=== PATIENT | male | born 1935 | race Two or more races ===

== ENCOUNTER 2018-12-27 16:26 | Inpatient (IN) | payer MEDICARE ==
[2018-12-27 22:12] VITALS: BP 137/67
[2018-12-27] MEDS ORDERED: Acetaminophen 500 MG TAB PO PRN (23:26)
[2018-12-28] MEDS: NIFEdipine 30 mg ER Tab PO SCH (14:30)
--- NOTE | 2018-12-28 15:52 | History & Physical ---
ADMIT DATE: 12/28/2018 CHIEF COMPLAINT: Transfer from [facility] for continuation of psychiatric management. HISTORY OF PRESENT ILLNESS: This is an 83-year-old male who was transferred from [facility] who is medically cleared, who is also a resident of [facility] care unit, who has a 1-day history of increase of agitation and aggressive behavior and inappropriate sexual behavior towards female staff at the residential. PAST MEDICAL HISTORY: CVA with left hemiplegia, dysphagia, AFib, NM, DM, neuropathy, seizure, CKD, BPH, chronic constipation, glaucoma. PAST SURGICAL HISTORY: Unknown. ALLERGIES: AMBIEN. SOCIAL HISTORY: The patient is a residential resident, requiring 24-hour nursing care. FAMILY HISTORY: Noncontributory. MEDICATIONS: See medication list. REVIEW OF SYSTEMS: GENERAL: Denies any fever or chills. CARDIOVASCULAR: Denies chest pain. RESPIRATORY: Denies shortness of breath. GASTROINTESTINAL: Denies nausea, vomiting, abdominal pain. GENITOURINARY: Denies increased frequency or dysuria. NEUROLOGIC: Denies headache, seizures or syncope. All systems are reviewed and are negative. PHYSICAL EXAMINATION: EXTREMITIES: The patient is an elderly male, well developed, well nourished, no apparent distress. VITAL SIGNS: Temperature 97.9, heart rate 71, blood pressure 175/82, respirations 20, O2 97%. HEENT: Head; normocephalic, atraumatic. NECK: Supple. No mass. LUNGS: Clear bilaterally. ABDOMEN: Soft, nontender. EXTREMITIES: No edema noted. ASSESSMENT: Aggressive behavior, agitation, dysphagia, history of atrial fibrillation, history of myocardial infarction, type 2 diabetes, neuropathy, history of seizures, chronic kidney disease, benign prostatic hypertrophy, chronic constipation, glaucoma. PLAN: Seizure precautions will be initiated. We will monitor the patient's glucose level closely. Aspiration precautions, fall precautions. Continue patient's home medications. We will continue to monitor this patient. JOB# [id number]
--- NOTE | 2018-12-28 17:27 | Psychiatric Evaluation ---
DATE OF SERVICE: 12/28/2018 JUSTIFICATION FOR HOSPITALIZATION: "I'm here visiting." HISTORY OF PRESENT ILLNESS: This is an 83-year-old male, very confused, disoriented, was apparently aggressive at the shelter facility, touching females inappropriately, hitting other people, aggressive, agitated, very impulsive, unpredictable. On [id number], the patient is AO to name only, not place, not month, he believes this is 1999 as the year and the month is 1959. Noted to be yelling, trying to hit others. PAST PSYCHIATRIC HISTORY: Likely dementia as noted, also depression. PAST MEDICAL HISTORY: Please see full H and P. SOCIAL HISTORY: Coming from a shelter. Unclear level of family support. We will attempt to increase collateral. MENTAL STATUS EXAMINATION: Stated age. Fair eye contact, appearing somewhat younger than his stated age, confused, disoriented. No SI, no HI, no overt psychotic symptoms, very poor impulse control. PROVISIONAL DIAGNOSES: Dementia, dementia with behaviors; mood, unspecified; anxiety, unspecified. MEDICAL: Please see full H and P. ESTIMATED LENGTH OF STAY: 7-10 days. ASSESSMENT: The patient requiring hospitalization, agitated, aggressive, hypersexual toward females. PLAN: We will adjust medications. TREATMENT PLAN: Includes group as well as milieu therapy. CONDITIONS FOR DISCHARGE: Improved mood, improved affect, better control of his agitation. JOB# [id number]
[2018-12-29] MEDS: NIFEdipine 30 mg ER Tab PO SCH (09:00)
--- NOTE | 2018-12-29 15:26 | Internal Medicine Prog Note ---
Internal Medicine Subjective - Subjective Service Date: 12/29/18 Patient seen and examined:: with staff Patient is:: asleep Per staff patient has:: tolerating meds Internal Medicine Objective - Physical Exam Vitals and I&O: Vital Signs Temp 120 F 12/29/18 06:44 Pulse 76 12/28/18 20:31 Resp 18 12/28/18 20:00 BP 149/70 12/28/18 20:31 Pulse Ox 97 12/28/18 20:00 Intake & Output 12/28/18 12/29/18 12/29/18 18:59 06:59 18:59 Intake Total 1200 Balance 1200 Intake: Oral 1200 Other: # Voids 2 # Bowel Movements 1 0 Active Medications: Current Medications Acetaminophen (Tylenol Extra Strength) 1,000 mg PO Q4H PRN PRN Reason: Pain (Moderate) LEVEL 4-7 Stop: 02/25/19 23:25 Acetaminophen (Tylenol) 500 mg PO Q8H PRN PRN Reason: Pain (Mild) LEVEL 1-3 Stop: 02/25/19 23:23 Aspirin (Ecotrin) 81 mg PO DAILY [facility] Stop: 02/26/19 08:59 Last Admin: 12/28/18 09:00 Dose: 81 mg Brimonidine Tartrate (Alphagan 0.2% Ophth Soln) 1 drop EACH EYE Q12HR [facility] Stop: 02/26/19 08:59 Last Admin: 12/28/18 21:21 Dose: Not Given Docusate Sodium (Colace) 250 mg PO DAILY [facility] Stop: 02/26/19 08:59 Last Admin: 12/28/18 09:02 Dose: 250 mg Donepezil HCl (Aricept) 10 mg PO HS [facility] Stop: 02/26/19 20:59 Last Admin: 12/28/18 20:31 Dose: 10 mg Escitalopram Oxalate (Lexapro) 10 mg PO BID [facility]; Protocol Stop: 02/26/19 08:59 Last Admin: 12/28/18 16:56 Dose: 10 mg Finasteride (Proscar) 5 mg PO DAILY [facility]; Protocol Stop: 02/26/19 08:59 Last Admin: 12/28/18 09:04 Dose: 5 mg Hydralazine HCl (Apresoline) 25 mg PO QID [facility] Stop: 02/26/19 08:59 Last Admin: 12/28/18 20:31 Dose: 25 mg Levetiracetam (Keppra) 500 mg PO BID [facility] Stop: 02/26/19 08:59 Last Admin: 12/28/18 16:57 Dose: 500 mg Lorazepam (Ativan) 0.5 mg PO Q8H [facility]; Protocol Stop: 01/26/19 22:44 Last Admin: 12/29/18 06:37 Dose: 0.5 mg Losartan Potassium (Cozaar) 50 mg PO BID [facility] Stop: 02/26/19 08:59 Last Admin: 12/28/18 16:57 Dose: 50 mg Memantine (Namenda) 10 mg PO BID [facility] Stop: 02/26/19 08:59 Last Admin: 12/28/18 16:57 Dose: 10 mg Nifedipine (Procardia Xl) 90 mg PO DAILY [facility] Stop: 02/26/19 08:59 Last Admin: 12/28/18 14:30 Dose: 90 mg Risperidone (Risperdal) 0.25 mg PO BID [facility]; Protocol Stop: 02/27/19 08:59 Tamsulosin HCl (Flomax) 0.4 mg PO HS [facility] Stop: 02/26/19 20:59 Last Admin: 12/28/18 20:31 Dose: 0.4 mg Timolol Maleate (Timoptic 0.5% [facility]) 1 drop EACH EYE BID [facility] Stop: 02/26/19 08:59 Last Admin: 12/28/18 17:45 Dose: 1 drop Valproate Sodium (Depakene) 250 mg PO BID [facility]; Protocol Stop: 02/26/19 08:59 Last Admin: 12/28/18 16:58 Dose: 250 mg General: other (sleepy) HEENT: NC/AT, PERRLA Neck: Supple Lungs: CTAB Cardiovascular: RRR, Normal S1, Normal S2, without murmur Abdomen: soft, non-tender Internal Medicine Assmt/Plan - Assessment Assessment: ASSESSMENT: Aggressive behavior, agitation, dysphagia, history of atrial fibrillation, history of myocardial infarction, type 2 diabetes, neuropathy, history of seizures, chronic kidney disease, benign prostatic hypertrophy, chronic constipation, glaucoma. - Plan Plan: psych meds may need to be adjusted patient has been asleep the whole day fall precautions continue current plan of care
[2018-12-30] MEDS: NIFEdipine 30 mg ER Tab PO SCH (08:12)
--- NOTE | 2018-12-30 12:50 | Internal Medicine Prog Note ---
Internal Medicine Subjective - Subjective Patient seen and examined:: with staff, chart reviewed Patient is:: asleep, interactive Per staff patient has:: no adverse event, no episodes of fall, tolerating meds Internal Medicine Objective - Physical Exam Vitals and I&O: Vital Signs Temp 97.7 F 12/30/18 06:43 Pulse 69 12/30/18 08:15 Resp 18 12/30/18 06:43 BP 141/77 12/30/18 08:15 Pulse Ox 96 12/30/18 06:43 Intake & Output 12/29/18 12/30/18 12/30/18 18:59 06:59 18:59 Intake Total 550 120 Balance 550 120 Intake: Oral 550 120 Other: # Voids 3 Active Medications: Current Medications Acetaminophen (Tylenol Extra Strength) 1,000 mg PO Q4H PRN PRN Reason: Pain (Moderate) LEVEL 4-7 Stop: 02/25/19 23:25 Acetaminophen (Tylenol Extra Strength) 500 mg PO Q8H PRN PRN Reason: Pain (Mild) LEVEL 1-3 Stop: 02/25/19 23:23 Aspirin (Ecotrin) 81 mg PO DAILY [facility] Stop: 02/26/19 08:59 Last Admin: 12/30/18 08:12 Dose: 81 mg Brimonidine Tartrate (Alphagan 0.2% Oph Soln) 1 drop EACH EYE Q12HR [facility] Stop: 02/26/19 08:59 Last Admin: 12/30/18 08:46 Dose: 1 drop Docusate Sodium (Colace) 250 mg PO DAILY [facility] Stop: 02/26/19 08:59 Last Admin: 12/30/18 08:12 Dose: 250 mg Donepezil HCl (Aricept) 10 mg PO HS [facility] Stop: 02/26/19 20:59 Last Admin: 12/29/18 20:49 Dose: 10 mg Escitalopram Oxalate (Lexapro) 10 mg PO BID [facility]; Protocol Stop: 02/26/19 08:59 Last Admin: 12/30/18 08:13 Dose: 10 mg Finasteride (Proscar) 5 mg PO DAILY [facility]; Protocol Stop: 02/26/19 08:59 Last Admin: 12/30/18 08:12 Dose: 5 mg Hydralazine HCl (Apresoline) 25 mg PO QID [facility] Stop: 02/26/19 08:59 Last Admin: 12/30/18 08:15 Dose: 25 mg Levetiracetam (Keppra) 500 mg PO BID [facility] Stop: 02/26/19 08:59 Last Admin: 12/30/18 08:12 Dose: 500 mg Lorazepam (Ativan) 0.5 mg PO Q8H [facility]; Protocol Stop: 01/26/19 22:44 Last Admin: 12/30/18 06:39 Dose: 0.5 mg Losartan Potassium (Cozaar) 50 mg PO BID [facility] Stop: 02/26/19 08:59 Last Admin: 12/30/18 08:14 Dose: 50 mg Memantine (Namenda) 10 mg PO BID [facility] Stop: 02/26/19 08:59 Last Admin: 12/30/18 08:11 Dose: 10 mg Nifedipine (Procardia Xl) 90 mg PO DAILY [facility] Stop: 02/26/19 08:59 Last Admin: 12/30/18 08:12 Dose: 90 mg Risperidone (Risperdal) 0.25 mg PO BID [facility]; Protocol Stop: 02/27/19 08:59 Tamsulosin HCl (Flomax) 0.4 mg PO HS [facility] Stop: 02/26/19 20:59 Last Admin: 12/29/18 20:49 Dose: 0.4 mg Timolol Maleate (Timoptic 0.5% Oph Soln) 1 drop EACH EYE BID [facility] Stop: 02/26/19 08:59 Last Admin: 12/30/18 08:46 Dose: 1 drop Valproate Sodium (Depakene) 250 mg PO BID [facility]; Protocol Stop: 02/26/19 08:59 Last Admin: 12/30/18 08:11 Dose: 250 mg General: demented, other (sleepy) HEENT: NC/AT, PERRLA Neck: Supple Lungs: CTAB Cardiovascular: RRR, Normal S1, Normal S2, without murmur Abdomen: soft, non-tender Neurological: no change, disorganized Internal Medicine Assmt/Plan - Assessment Assessment: ASSESSMENT: dysphagia, history of atrial fibrillation, history of myocardial infarction, type 2 diabetes, neuropathy, history of seizures, chronic kidney disease, benign prostatic hypertrophy, chronic constipation, glaucoma. - Plan Plan: PLAN: Seizure precautions will be initiated. We will monitor the patient's glucose level closely. ada iss Aspiration precautions, fall precautions. Continue patient's home medications. cont on aeds We will continue to monitor this patient.
--- NOTE | 2018-12-30 19:17 | Progress Notes ---
DATE: 12/29/2018 SUBJECTIVE: The patient in the hospital and still noted to be agitated, irritable, not saying anything to me, confused appearing withdrawn on exam, does not know where he is or what is going on. Fair sleep, fair appetite. Staff noting he is still unruly, very poor impulse control and will be adjusting his medications ____. JOB# [id number]
[2018-12-30] MEDS: Acetaminophen 500 MG TAB PO PRN (20:36)
--- NOTE | 2018-12-30 23:31 | Progress Notes ---
DATE: 12/30/2018 SUBJECTIVE: The patient is currently in bed, mostly withdrawn, very confused, does not know where he is or what is going on, does not know the year or the month. Still remains agitated, sometimes impulsive, unpredictable, striking out, concerns that he may continue to strike out or remain somewhat unruly. Fair sleep, fair appetite, needing a high level of prompting, redirection and nursing care. PLAN: We will continue to monitor. The patient remains unruly, impulsive. We will continue to slowly titrate medications. JOB# [id number]
[2018-12-31] MEDS: NIFEdipine 30 mg ER Tab PO SCH (10:02)
--- NOTE | 2018-12-31 12:53 | Internal Medicine Prog Note ---
Internal Medicine Subjective - Subjective Patient seen and examined:: with staff, chart reviewed Patient is:: asleep, interactive Per staff patient has:: no adverse event, no episodes of fall, tolerating meds Internal Medicine Objective - Physical Exam Vitals and I&O: Vital Signs Temp 98.3 F 12/31/18 06:25 Pulse 72 12/31/18 10:07 Resp 20 12/31/18 06:25 BP 150/86 12/31/18 10:07 Pulse Ox 96 12/31/18 06:25 Intake & Output 12/30/18 12/31/18 12/31/18 18:59 06:59 18:59 Intake Total 950 60 Balance 950 60 Intake: Oral 950 60 Other: # Voids 4 2 # Bowel Movements 1 1 Active Medications: Current Medications Acetaminophen (Tylenol Extra Strength) 1,000 mg PO Q4H PRN PRN Reason: Pain (Moderate) LEVEL 4-7 Stop: 02/25/19 23:25 Acetaminophen (Tylenol Extra Strength) 500 mg PO Q8H PRN PRN Reason: Pain (Mild) LEVEL 1-3 Stop: 02/25/19 23:23 Last Admin: 12/30/18 20:36 Dose: 500 mg Aspirin (Ecotrin) 81 mg PO DAILY [facility] Stop: 02/26/19 08:59 Last Admin: 12/31/18 10:02 Dose: 81 mg Brimonidine Tartrate (Alphagan 0.2% Ophth Soln) 1 drop EACH EYE Q12HR [facility] Stop: 02/26/19 08:59 Last Admin: 12/31/18 10:04 Dose: 1 drop Docusate Sodium (Colace) 250 mg PO DAILY [facility] Stop: 02/26/19 08:59 Last Admin: 12/31/18 10:05 Dose: 250 mg Donepezil HCl (Aricept) 10 mg PO HS [facility] Stop: 02/26/19 20:59 Last Admin: 12/30/18 20:35 Dose: 10 mg Escitalopram Oxalate (Lexapro) 10 mg PO BID [facility]; Protocol Stop: 02/26/19 08:59 Last Admin: 12/31/18 10:05 Dose: 10 mg Finasteride (Proscar) 5 mg PO DAILY [facility]; Protocol Stop: 02/26/19 08:59 Last Admin: 12/31/18 10:05 Dose: 5 mg Hydralazine HCl (Apresoline) 25 mg PO QID [facility] Stop: 02/26/19 08:59 Last Admin: 12/31/18 10:07 Dose: 25 mg Levetiracetam (Keppra) 500 mg PO BID [facility] Stop: 02/26/19 08:59 Last Admin: 12/31/18 10:02 Dose: 500 mg Lorazepam (Ativan) 0.5 mg PO Q8H [facility]; Protocol Stop: 01/26/19 22:44 Last Admin: 12/31/18 06:26 Dose: 0.5 mg Losartan Potassium (Cozaar) 50 mg PO BID [facility] Stop: 02/26/19 08:59 Last Admin: 12/31/18 10:06 Dose: 50 mg Memantine (Namenda) 10 mg PO BID [facility] Stop: 02/26/19 08:59 Last Admin: 12/31/18 10:04 Dose: 10 mg Nifedipine (Procardia Xl) 90 mg PO DAILY [facility] Stop: 02/26/19 08:59 Last Admin: 12/31/18 10:02 Dose: 90 mg Risperidone (Risperdal) 0.25 mg PO BID [facility]; Protocol Stop: 02/27/19 08:59 Tamsulosin HCl (Flomax) 0.4 mg PO HS [facility] Stop: 02/26/19 20:59 Last Admin: 12/30/18 20:36 Dose: 0.4 mg Timolol Maleate (Timoptic 0.5% Ophth Soln) 1 drop EACH EYE BID [facility] Stop: 02/26/19 08:59 Last Admin: 12/31/18 10:09 Dose: 1 drop Valproate Sodium (Depakene) 250 mg PO BID [facility]; Protocol Stop: 02/26/19 08:59 Last Admin: 12/31/18 10:08 Dose: 250 mg General: demented, other (sleepy) HEENT: NC/AT, PERRLA Neck: Supple Lungs: CTAB Cardiovascular: RRR, Normal S1, Normal S2, without murmur Abdomen: soft, non-tender Neurological: no change, disorganized Internal Medicine Assmt/Plan - Assessment Assessment: ASSESSMENT: dysphagia, history of atrial fibrillation, history of myocardial infarction, type 2 diabetes, neuropathy, history of seizures, chronic kidney disease, benign prostatic hypertrophy, chronic constipation, glaucoma. - Plan Plan: PLAN: Seizure precautions will be initiated. We will monitor the patient's glucose level closely. ada iss Aspiration precautions, fall precautions. Continue patient's home medications. cont on aeds We will continue to monitor this patient.
--- NOTE | 2019-01-01 02:45 | Progress Notes ---
DATE: 12/31/2018 The patient is mostly withdrawn, still confused, unpredictable. He is resting comfortably right now. Sometimes unruly, gets agitated, sometimes screaming, yelling, anxiety at times, yelling at the names of his children, ongoing symptoms, safety concerns. Continue dosing of Risperdal. [facility]# [id number]
[2019-01-01] MEDS: NIFEdipine 30 mg ER Tab PO SCH (09:23)
--- NOTE | 2019-01-01 12:39 | Internal Medicine Prog Note ---
Internal Medicine Subjective - Subjective Patient seen and examined:: with staff, chart reviewed Patient is:: asleep, interactive Per staff patient has:: no adverse event, no episodes of fall, tolerating meds Internal Medicine Objective - Physical Exam Vitals and I&O: Vital Signs Temp 97.6 F 01/01/19 06:32 Pulse 63 01/01/19 09:23 Resp 19 01/01/19 06:32 BP 125/81 01/01/19 09:23 Pulse Ox 98 01/01/19 06:32 Intake & Output 12/31/18 01/01/19 01/01/19 18:59 06:59 18:59 Intake Total 700 60 Balance 700 60 Intake: Oral 700 60 Other: # Voids 3 3 # Bowel Movements 0 0 Active Medications: Current Medications Acetaminophen (Tylenol Extra Strength) 1,000 mg PO Q4H PRN PRN Reason: Pain (Moderate) LEVEL 4-7 Stop: 02/25/19 23:25 Acetaminophen (Tylenol Extra Strength) 500 mg PO Q8H PRN PRN Reason: Pain (Mild) LEVEL 1-3 Stop: 02/25/19 23:23 Last Admin: 12/30/18 20:36 Dose: 500 mg Aspirin (Ecotrin) 81 mg PO DAILY [facility] Stop: 02/26/19 08:59 Last Admin: 01/01/19 09:25 Dose: 81 mg Brimonidine Tartrate (Alphagan 0.2% Ophth Soln) 1 drop EACH EYE Q12HR [facility] Stop: 02/26/19 08:59 Last Admin: 01/01/19 09:25 Dose: 1 drop Docusate Sodium (Colace) 250 mg PO DAILY [facility] Stop: 02/26/19 08:59 Last Admin: 01/01/19 09:20 Dose: 250 mg Donepezil HCl (Aricept) 10 mg PO HS [facility] Stop: 02/26/19 20:59 Last Admin: 12/31/18 20:25 Dose: 10 mg Escitalopram Oxalate (Lexapro) 10 mg PO BID [facility]; Protocol Stop: 02/26/19 08:59 Last Admin: 01/01/19 09:20 Dose: 10 mg Finasteride (Proscar) 5 mg PO DAILY [facility]; Protocol Stop: 02/26/19 08:59 Last Admin: 01/01/19 09:23 Dose: 5 mg Hydralazine HCl (Apresoline) 25 mg PO QID [facility] Stop: 02/26/19 08:59 Last Admin: 01/01/19 09:23 Dose: 25 mg Levetiracetam (Keppra) 500 mg PO BID [facility] Stop: 02/26/19 08:59 Last Admin: 01/01/19 09:23 Dose: 500 mg Lorazepam (Ativan) 0.5 mg PO Q8H [facility]; Protocol Stop: 01/26/19 22:44 Last Admin: 01/01/19 06:36 Dose: 0.5 mg Losartan Potassium (Cozaar) 50 mg PO BID [facility] Stop: 02/26/19 08:59 Last Admin: 01/01/19 09:22 Dose: 50 mg Memantine (Namenda) 10 mg PO BID [facility] Stop: 02/26/19 08:59 Last Admin: 01/01/19 09:25 Dose: 10 mg Nifedipine (Procardia Xl) 90 mg PO DAILY [facility] Stop: 02/26/19 08:59 Last Admin: 01/01/19 09:23 Dose: 90 mg Risperidone (Risperdal) 0.25 mg PO BID [facility]; Protocol Stop: 02/27/19 08:59 Last Admin: 01/01/19 09:24 Dose: 0.25 mg Tamsulosin HCl (Flomax) 0.4 mg PO HS [facility] Stop: 02/26/19 20:59 Last Admin: 12/31/18 20:26 Dose: 0.4 mg Timolol Maleate (Timoptic 0.5% Oph Soln) 1 drop EACH EYE BID [facility] Stop: 02/26/19 08:59 Last Admin: 01/01/19 09:25 Dose: 1 drop Valproate Sodium (Depakene) 250 mg PO BID [facility]; Protocol Stop: 02/26/19 08:59 Last Admin: 01/01/19 09:23 Dose: 250 mg General: demented, other (sleepy) HEENT: NC/AT, PERRLA Neck: Supple Lungs: CTAB Cardiovascular: RRR, Normal S1, Normal S2, without murmur Abdomen: soft, non-tender Neurological: no change, disorganized Internal Medicine Assmt/Plan - Assessment Assessment: ASSESSMENT: dysphagia, history of atrial fibrillation, history of myocardial infarction, type 2 diabetes, neuropathy, history of seizures, chronic kidney disease, benign prostatic hypertrophy, chronic constipation, glaucoma. - Plan Plan: PLAN: Seizure precautions will be initiated. We will monitor the patient's glucose level closely. ada iss Aspiration precautions, fall precautions. Continue patient's home medications. cont on aeds We will continue to monitor this patient. Nutritional Asmnt/Malnutr-PDOC - Dietary Evaluation Malnutrition Findings (Please click <Entered> for more info): Nutritional Asmnt/Malnutrition Start: 12/31/18 14: 37 Text: Status: Complete Freq: Protocol: Document 12/31/18 14:37 JENNY (Rec: 12/31/18 14:41 [email or web address] [id number]) Nutritional Asmnt/Malnutrition Patient General Information Nutritional Screening Moderate Risk Diagnosis Psychosis Pertinent Medical Hx/Surgical Hx CVA with hemiplegia, dysphagia , AFib, RI, DM, Neurpoathy, Seizure, CKD, Chronic constipation, Glaucoma. Subjective Information Pt is a 83-year-old male admitted on 12/27 transferred from [facility] for a continuation of psychiatric management. Presented agitation and aggression in transitional care unit with inappropriate sexual behavior towards female staff. Recommend adding Renal diet, 60gm to Dx as Pt has Hx CKD. BUN/CR: 39/1.98 (12/27 labs). HT: 56 WT: 140 LB (63.64 kg) BMI: 22.60 (Normal) GI: Flat, Soft, Non-tender BM: 12/31 x1 I/O: 1010/Not Noted Skin: WNL, Intact Negro: 17 Diet Order: Mechanical Soft, NCS Estimated Energy Needs: (CKD stage 1-3, CBW) 5638-5948 kcals (28-35 kcals/ kg) 48-51g Pro (0.75-0.8 g/kg) 1070-1079 ml (25-30 ml/kg) Pt is eating 65% of meals x3 days (average) Per Meal/ Nutrition Activity Record. Dietary is currently providing an estimated 2045 kcals and 116 gm Pro, per Pt PO intake this is providing an estimated 1329 kcals and 76gm Pro to meet 75% kcal and 100+% Pro needs. Current Diet Order/ Nutrition Support Mechanical Soft, NCS Pertinent Medications Colace, Cozaar Pertinent Labs 12/27: Hgb/Hct 11.1/33.3, Glucose 158, BUN/CR 39/1.98, Alb 3.1 Nutritional Hx/Data Height 1.68 m Height (Calculated Centimeters) 167.6 Current Weight (lbs) 63.503 kg Weight (Calculated Kilograms) 63.5 Weight (Calculated Grams) 23365.9 [place] Body Weight 142 LB (64.55 kg) % [place] Body Weight 99 Body Mass Index (BMI) 22.6 Weight Status Approriate GI Symptoms Last BM 12/31 x1 Skin Integrity/Comment: Skin: WNL, Intact Negro: 17 Estimated Nutritional Goals BEE in Kcals: Using Current wt Calories/Kcals/Kg 28-35 Kcals Calculated 6850-8149 Protein: Using Current wt Protein g/k.75-0.8 Protein Calculated 48-51 Fluid: ml 9612-1382 ml (25-30 ml/kg) Nutritional Problem 1. Problem Problem Excessive protein intake Etiology r/t Hx CKD Signs/Symptoms: aeb pt PO intake estimated 76gm, over 100% estimated needs. Malnutrition Related to Morbid Obesity Malnutrition related to morbid obesity No Intervention/Recommendation Comments 1 .Continue with Mechanical Soft, NCS diet as ordered. 2. Recommend adding Renal diet , 60gm to Diet Rx as Pt has Hx CKD. BUN/CR: 39/1.98 (12/27 labs). Expected Outcomes/Goals Expected Outcomes/Goals 1. PO intake to continue to meet 75% of nutritional needs. 2. Monitor PO intake, wt, nutrition related labs to trend WNL, and skin integrity. 3. F/U as moderate risk in 7 days, 01/03-01/05
--- NOTE | 2019-01-01 21:59 | Progress Notes ---
DATE: 01/01/2019 SUBJECTIVE: The patient is currently in the hospital, quiet, calm, but noted to be agitated, unruly at times, ongoing safety concerns, still yelling, screaming at times, very confused on exam, AO x name only, does not know where he is or what is going on. ASSESSMENT: The patient unruly, restless, ongoing agitation. PLAN: We will continue to monitor on an inpatient setting given ongoing behaviors. JOB# [id number]
[2019-01-02] MEDS: NIFEdipine 30 mg ER Tab PO SCH (09:05)
--- NOTE | 2019-01-02 13:11 | Internal Medicine Prog Note ---
Internal Medicine Subjective - Subjective Patient seen and examined:: with staff, chart reviewed Patient is:: asleep, interactive Per staff patient has:: no adverse event, no episodes of fall, tolerating meds Internal Medicine Objective - Physical Exam Vitals and I&O: Vital Signs Temp 97.1 F 01/02/19 06:37 Pulse 73 01/02/19 09:06 Resp 18 01/02/19 06:37 BP 132/74 01/02/19 09:06 Pulse Ox 98 01/02/19 06:37 Intake & Output 01/01/19 01/02/19 01/02/19 18:59 06:59 18:59 Intake Total 800 Balance 800 Intake: Oral 800 Other: # Voids 3 3 # Bowel Movements 0 Active Medications: Current Medications Acetaminophen (Tylenol Extra Strength) 1,000 mg PO Q4H PRN PRN Reason: Pain (Moderate) LEVEL 4-7 Stop: 02/25/19 23:25 Acetaminophen (Tylenol Extra Strength) 500 mg PO Q8H PRN PRN Reason: Pain (Mild) LEVEL 1-3 Stop: 02/25/19 23:23 Last Admin: 12/30/18 20:36 Dose: 500 mg Aspirin (Ecotrin) 81 mg PO DAILY [facility] Stop: 02/26/19 08:59 Last Admin: 01/02/19 09:05 Dose: 81 mg Brimonidine Tartrate (Alphagan 0.2% Ophth Soln) 1 drop EACH EYE Q12HR [facility] Stop: 02/26/19 08:59 Last Admin: 01/02/19 09:08 Dose: 1 drop Docusate Sodium (Colace) 250 mg PO DAILY [facility] Stop: 02/26/19 08:59 Last Admin: 01/02/19 09:04 Dose: 250 mg Donepezil HCl (Aricept) 10 mg PO HS [facility] Stop: 02/26/19 20:59 Last Admin: 01/01/19 20:50 Dose: 10 mg Escitalopram Oxalate (Lexapro) 10 mg PO BID [facility]; Protocol Stop: 02/26/19 08:59 Last Admin: 01/02/19 09:05 Dose: 10 mg Finasteride (Proscar) 5 mg PO DAILY [facility]; Protocol Stop: 02/26/19 08:59 Last Admin: 01/02/19 09:07 Dose: 5 mg Hydralazine HCl (Apresoline) 25 mg PO QID [facility] Stop: 02/26/19 08:59 Last Admin: 01/02/19 09:04 Dose: 25 mg Levetiracetam (Keppra) 500 mg PO BID [facility] Stop: 02/26/19 08:59 Last Admin: 01/02/19 09:07 Dose: 500 mg Lorazepam (Ativan) 0.5 mg PO Q8H [facility]; Protocol Stop: 01/26/19 22:44 Last Admin: 01/02/19 06:19 Dose: 0.5 mg Losartan Potassium (Cozaar) 50 mg PO BID [facility] Stop: 02/26/19 08:59 Last Admin: 01/02/19 09:06 Dose: 50 mg Memantine (Namenda) 10 mg PO BID [facility] Stop: 02/26/19 08:59 Last Admin: 01/02/19 09:07 Dose: 10 mg Nifedipine (Procardia Xl) 90 mg PO DAILY [facility] Stop: 02/26/19 08:59 Last Admin: 01/02/19 09:05 Dose: 90 mg Risperidone (Risperdal) 0.25 mg PO BID [facility]; Protocol Stop: 02/27/19 08:59 Last Admin: 01/02/19 09:08 Dose: 0.25 mg Tamsulosin HCl (Flomax) 0.4 mg PO HS [facility] Stop: 02/26/19 20:59 Last Admin: 01/01/19 20:50 Dose: 0.4 mg Timolol Maleate (Timoptic 0.5% Ophth Soln) 1 drop EACH EYE BID [facility] Stop: 02/26/19 08:59 Last Admin: 01/02/19 09:04 Dose: 1 drop Valproate Sodium (Depakene) 250 mg PO BID [facility]; Protocol Stop: 02/26/19 08:59 Last Admin: 01/02/19 09:04 Dose: 250 mg General: demented, other (sleepy) HEENT: NC/AT, PERRLA Neck: Supple Lungs: CTAB Cardiovascular: RRR, Normal S1, Normal S2, without murmur Abdomen: soft, non-tender Neurological: no change, disorganized Internal Medicine Assmt/Plan - Assessment Assessment: ASSESSMENT: dysphagia, history of atrial fibrillation, history of myocardial infarction, type 2 diabetes, neuropathy, history of seizures, chronic kidney disease, benign prostatic hypertrophy, chronic constipation, glaucoma. - Plan Plan: PLAN: Seizure precautions will be initiated. We will monitor the patient's glucose level closely. ada iss Aspiration precautions, fall precautions. Continue patient's home medications. cont on aeds We will continue to monitor this patient. Nutritional Asmnt/Malnutr-PDOC - Dietary Evaluation Malnutrition Findings (Please click <Entered> for more info): Nutritional Asmnt/Malnutrition Start: 12/31/18 14: 37 Text: Status: Complete Freq: Protocol: Document 12/31/18 14:37 PABLITOGABRIELEORAL (Rec: 12/31/18 14:41 JENNY [email or web address]) Nutritional Asmnt/Malnutrition Patient General Information Nutritional Screening Moderate Risk Diagnosis Psychosis Pertinent Medical Hx/Surgical Hx CVA with hemiplegia, dysphagia , AFib, [place], DM, Neurpoathy, Seizure, CKD, Chronic constipation, Glaucoma. Subjective Information Pt is a 83-year-old male admitted on 12/27 transferred from [facility] for a continuation of psychiatric management. Presented agitation and aggression in transitional care unit with inappropriate sexual behavior towards female staff. Recommend adding Renal diet, 60gm to Dx as Pt has Hx CKD. BUN/CR: 39/1.98 (12/27 labs). HT: 56 WT: 140 LB (63.64 kg) BMI: 22.60 (Normal) GI: Flat, Soft, Non-tender BM: 12/31 x1 I/O: 1010/Not Noted Skin: WNL, Intact Negro: 17 Diet Order: Mechanical Soft, NCS Estimated Energy Needs: (CKD stage 1-3, CBW) 3314-3798 kcals (28-35 kcals/ kg) 48-51g Pro (0.75-0.8 g/kg) 6655-8518 ml (25-30 ml/kg) Pt is eating 65% of meals x3 days (average) Per Meal/ Nutrition Activity Record. Dietary is currently providing an estimated 2045 kcals and 116 gm Pro, per Pt PO intake this is providing an estimated 1329 kcals and 76gm Pro to meet 75% kcal and 100+% Pro needs. Current Diet Order/ Nutrition Support Mechanical Soft, NCS Pertinent Medications Colace, Cozaar Pertinent Labs 12/27: Hgb/Hct 11.1/33.3, Glucose 158, BUN/CR 39/1.98, Alb 3.1 Nutritional Hx/Data Height 1.68 m Height (Calculated Centimeters) 167.6 Current Weight (lbs) 63.503 kg Weight (Calculated Kilograms) 63.5 Weight (Calculated Grams) 91156.9 [place] Body Weight 142 LB (64.55 kg) % [place] Body Weight 99 Body Mass Index (BMI) 22.6 Weight Status Approriate GI Symptoms Last BM 12/31 x1 Skin Integrity/Comment: Skin: WNL, Intact Negro: 17 Estimated Nutritional Goals BEE in Kcals: Using Current wt Calories/Kcals/Kg 28-35 Kcals Calculated 8452-5942 Protein: Using Current wt Protein g/k.75-0.8 Protein Calculated 48-51 Fluid: ml 8369-9438 ml (25-30 ml/kg) Nutritional Problem 1. Problem Problem Excessive protein intake Etiology r/t Hx CKD Signs/Symptoms: aeb pt PO intake estimated 76gm, over 100% estimated needs. Malnutrition Related to Morbid Obesity Malnutrition related to morbid obesity No Intervention/Recommendation Comments 1 .Continue with Mechanical Soft, NCS diet as ordered. 2. Recommend adding Renal diet , 60gm to Diet Rx as Pt has Hx CKD. BUN/CR: 39/1.98 (12/27 labs). Expected Outcomes/Goals Expected Outcomes/Goals 1. PO intake to continue to meet 75% of nutritional needs. 2. Monitor PO intake, wt, nutrition related labs to trend WNL, and skin integrity. 3. F/U as moderate risk in 7 days, 01/03-01/05
--- NOTE | 2019-01-02 20:16 | Progress Notes ---
DATE: 01/02/2019 SUBJECTIVE: The patient in the hospital, still unruly, gets agitated, upset, really aggressive sometimes, other times very calm, sleeping. The patient is calm right now, but ongoing unruly behaviors per staff, impulsive, highly unpredictable. We will lash out, very forgetful, fair sleep, fair appetite, needing a lot of prompting for ADLs, eating. PLAN: We will continue to monitor, titrate and adjust medications. [facility]# [id number]
[2019-01-03] MEDS: NIFEdipine 30 mg ER Tab PO SCH (08:23)
--- NOTE | 2019-01-03 12:45 | Internal Medicine Prog Note ---
Internal Medicine Subjective - Subjective Patient seen and examined:: with staff, chart reviewed Patient is:: asleep, interactive Per staff patient has:: no adverse event, no episodes of fall, tolerating meds Internal Medicine Objective - Physical Exam Vitals and I&O: Vital Signs Temp 98.1 F 01/03/19 06:34 Pulse 62 01/03/19 08:26 Resp 18 01/03/19 06:34 BP 134/71 01/03/19 08:26 Pulse Ox 96 01/03/19 06:34 Intake & Output 01/02/19 01/03/19 01/03/19 18:59 06:59 18:59 Intake Total 220 Balance 220 Intake: Oral 220 Other: # Voids 3 1 # Bowel Movements 0 Active Medications: Current Medications Acetaminophen (Tylenol Extra Strength) 1,000 mg PO Q4H PRN PRN Reason: Pain (Moderate) LEVEL 4-7 Stop: 02/25/19 23:25 Acetaminophen (Tylenol Extra Strength) 500 mg PO Q8H PRN PRN Reason: Pain (Mild) LEVEL 1-3 Stop: 02/25/19 23:23 Last Admin: 12/30/18 20:36 Dose: 500 mg Aspirin (Ecotrin) 81 mg PO DAILY [facility] Stop: 02/26/19 08:59 Last Admin: 01/03/19 08:26 Dose: 81 mg Brimonidine Tartrate (Alphagan 0.2% Ophth Soln) 1 drop EACH EYE Q12HR [facility] Stop: 02/26/19 08:59 Last Admin: 01/03/19 08:26 Dose: 1 drop Docusate Sodium (Colace) 250 mg PO DAILY [facility] Stop: 02/26/19 08:59 Last Admin: 01/03/19 08:23 Dose: 250 mg Donepezil HCl (Aricept) 10 mg PO HS [facility] Stop: 02/26/19 20:59 Last Admin: 01/02/19 20:37 Dose: 10 mg Escitalopram Oxalate (Lexapro) 10 mg PO BID [facility]; Protocol Stop: 02/26/19 08:59 Last Admin: 01/03/19 08:24 Dose: 10 mg Finasteride (Proscar) 5 mg PO DAILY [facility]; Protocol Stop: 02/26/19 08:59 Last Admin: 01/03/19 08:23 Dose: 5 mg Hydralazine HCl (Apresoline) 25 mg PO QID [facility] Stop: 02/26/19 08:59 Last Admin: 01/03/19 08:26 Dose: 25 mg Levetiracetam (Keppra) 500 mg PO BID [facility] Stop: 02/26/19 08:59 Last Admin: 01/03/19 08:24 Dose: 500 mg Lorazepam (Ativan) 0.5 mg PO Q8H [facility]; Protocol Stop: 01/26/19 22:44 Last Admin: 01/03/19 06:47 Dose: 0.5 mg Losartan Potassium (Cozaar) 50 mg PO BID [facility] Stop: 02/26/19 08:59 Last Admin: 01/03/19 08:21 Dose: 50 mg Memantine (Namenda) 10 mg PO BID [facility] Stop: 02/26/19 08:59 Last Admin: 01/03/19 08:23 Dose: 10 mg Nifedipine (Procardia Xl) 90 mg PO DAILY [facility] Stop: 02/26/19 08:59 Last Admin: 01/03/19 08:23 Dose: 90 mg Risperidone (Risperdal) 0.25 mg PO BID [facility]; Protocol Stop: 02/27/19 08:59 Last Admin: 01/03/19 08:25 Dose: 0.25 mg Tamsulosin HCl (Flomax) 0.4 mg PO HS [facility] Stop: 02/26/19 20:59 Last Admin: 01/02/19 20:37 Dose: 0.4 mg Timolol Maleate (Timoptic 0.5% Ophth Soln) 1 drop EACH EYE BID [facility] Stop: 02/26/19 08:59 Last Admin: 01/03/19 08:26 Dose: 1 drop Valproate Sodium (Depakene) 250 mg PO BID [facility]; Protocol Stop: 02/26/19 08:59 Last Admin: 01/03/19 08:21 Dose: 250 mg General: demented, other (sleepy) HEENT: NC/AT, PERRLA Neck: Supple Lungs: CTAB Cardiovascular: RRR, Normal S1, Normal S2, without murmur Abdomen: soft, non-tender Neurological: no change, disorganized Internal Medicine Assmt/Plan - Assessment Assessment: ASSESSMENT: dysphagia, history of atrial fibrillation, history of myocardial infarction, type 2 diabetes, neuropathy, history of seizures, chronic kidney disease, benign prostatic hypertrophy, chronic constipation, glaucoma. - Plan Plan: PLAN: Seizure precautions will be initiated. We will monitor the patient's glucose level closely. ada iss Aspiration precautions, fall precautions. Continue patient's home medications. cont on aeds We will continue to monitor this patient. Nutritional Asmnt/Malnutr-PDOC - Dietary Evaluation Malnutrition Findings (Please click <Entered> for more info): Nutritional Asmnt/Malnutrition Start: 12/31/18 14: 37 Text: Status: Complete Freq: Protocol: Document 12/31/18 14:37 PABLITOGABRIELEORAL (Rec: 12/31/18 14:41 JENNY [email or web address]) Nutritional Asmnt/Malnutrition Patient General Information Nutritional Screening Moderate Risk Diagnosis Psychosis Pertinent Medical Hx/Surgical Hx CVA with hemiplegia, dysphagia , AFib, [place], DM, Neurpoathy, Seizure, CKD, Chronic constipation, Glaucoma. Subjective Information Pt is a 83-year-old male admitted on 12/27 transferred from [facility] for a continuation of psychiatric management. Presented agitation and aggression in transitional care unit with inappropriate sexual behavior towards female staff. Recommend adding Renal diet, 60gm to Dx as Pt has Hx CKD. BUN/CR: 39/1.98 (12/27 labs). HT: 56 WT: 140 LB (63.64 kg) BMI: 22.60 (Normal) GI: Flat, Soft, Non-tender BM: 12/31 x1 I/O: 1010/Not Noted Skin: WNL, Intact Negro: 17 Diet Order: Mechanical Soft, NCS Estimated Energy Needs: (CKD stage 1-3, CBW) 9702-9467 kcals (28-35 kcals/ kg) 48-51g Pro (0.75-0.8 g/kg) 7761-4792 ml (25-30 ml/kg) Pt is eating 65% of meals x3 days (average) Per Meal/ Nutrition Activity Record. Dietary is currently providing an estimated 2045 kcals and 116 gm Pro, per Pt PO intake this is providing an estimated 1329 kcals and 76gm Pro to meet 75% kcal and 100+% Pro needs. Current Diet Order/ Nutrition Support Mechanical Soft, NCS Pertinent Medications Colace, Cozaar Pertinent Labs 12/27: Hgb/Hct 11.1/33.3, Glucose 158, BUN/CR 39/1.98, Alb 3.1 Nutritional Hx/Data Height 1.68 m Height (Calculated Centimeters) 167.6 Current Weight (lbs) 63.503 kg Weight (Calculated Kilograms) 63.5 Weight (Calculated Grams) 42971.9 [place] Body Weight 142 LB (64.55 kg) % [place] Body Weight 99 Body Mass Index (BMI) 22.6 Weight Status Approriate GI Symptoms Last BM 12/31 x1 Skin Integrity/Comment: Skin: WNL, Intact Negro: 17 Estimated Nutritional Goals BEE in Kcals: Using Current wt Calories/Kcals/Kg 28-35 Kcals Calculated 9287-4487 Protein: Using Current wt Protein g/k.75-0.8 Protein Calculated 48-51 Fluid: ml 9265-3111 ml (25-30 ml/kg) Nutritional Problem 1. Problem Problem Excessive protein intake Etiology r/t Hx CKD Signs/Symptoms: aeb pt PO intake estimated 76gm, over 100% estimated needs. Malnutrition Related to Morbid Obesity Malnutrition related to morbid obesity No Intervention/Recommendation Comments 1 .Continue with Mechanical Soft, NCS diet as ordered. 2. Recommend adding Renal diet , 60gm to Diet Rx as Pt has Hx CKD. BUN/CR: 39/1.98 (12/27 labs). Expected Outcomes/Goals Expected Outcomes/Goals 1. PO intake to continue to meet 75% of nutritional needs. 2. Monitor PO intake, wt, nutrition related labs to trend WNL, and skin integrity. 3. F/U as moderate risk in 7 days, 01/03-01/05
--- NOTE | 2019-01-03 23:08 | Progress Notes ---
DATE: 01/03/2019 SUBJECTIVE: The patient in the hospital, still agitated, striking out at times, seeing big animals, believing animals are making loud roaring sounds, some intermittent psychotic symptoms, bizarre, refusing to speak with me, opens his eyes then closes them, does not want to engage with me whatsoever. Staff noting he still gets aggressive at times and can strike out. Currently on dosing of Risperdal. Medications were noted. Vitals were reviewed. PLAN: We will continue to monitor ongoing concerns for aggressive behaviors toward other. JOB# [id number]
[2019-01-04] MEDS: NIFEdipine 30 mg ER Tab PO SCH (10:20)
--- NOTE | 2019-01-04 12:48 | Internal Medicine Prog Note ---
Internal Medicine Subjective - Subjective Patient seen and examined:: with staff, chart reviewed Patient is:: asleep, interactive Per staff patient has:: no adverse event, no episodes of fall, tolerating meds Internal Medicine Objective - Physical Exam Vitals and I&O: Vital Signs Temp 97 F 01/04/19 06:47 Pulse 65 01/04/19 10:21 Resp 18 01/04/19 08:00 BP 120/58 01/04/19 10:21 Pulse Ox 98 01/04/19 06:47 Intake & Output 01/03/19 01/04/19 01/04/19 18:59 06:59 18:59 Intake Total 1100 240 Balance 1100 240 Intake: Oral 1100 240 Other: # Voids 4 2 # Bowel Movements 0 Active Medications: Current Medications Acetaminophen (Tylenol Extra Strength) 1,000 mg PO Q4H PRN PRN Reason: Pain (Moderate) LEVEL 4-7 Stop: 02/25/19 23:25 Acetaminophen (Tylenol Extra Strength) 500 mg PO Q8H PRN PRN Reason: Pain (Mild) LEVEL 1-3 Stop: 02/25/19 23:23 Last Admin: 12/30/18 20:36 Dose: 500 mg Aspirin (Ecotrin) 81 mg PO DAILY [facility] Stop: 02/26/19 08:59 Last Admin: 01/04/19 10:21 Dose: 81 mg Brimonidine Tartrate (Alphagan 0.2% Ophth Soln) 1 drop EACH EYE Q12HR [facility] Stop: 02/26/19 08:59 Last Admin: 01/04/19 10:18 Dose: 1 drop Docusate Sodium (Colace) 250 mg PO DAILY [facility] Stop: 02/26/19 08:59 Last Admin: 01/04/19 10:19 Dose: 250 mg Donepezil HCl (Aricept) 10 mg PO HS [facility] Stop: 02/26/19 20:59 Last Admin: 01/03/19 21:56 Dose: Not Given Escitalopram Oxalate (Lexapro) 10 mg PO BID [facility]; Protocol Stop: 02/26/19 08:59 Last Admin: 01/04/19 10:18 Dose: 10 mg Finasteride (Proscar) 5 mg PO DAILY [facility]; Protocol Stop: 02/26/19 08:59 Last Admin: 01/04/19 10:19 Dose: 5 mg Hydralazine HCl (Apresoline) 25 mg PO QID [facility] Stop: 02/26/19 08:59 Last Admin: 01/04/19 10:20 Dose: 25 mg Levetiracetam (Keppra) 500 mg PO BID [facility] Stop: 02/26/19 08:59 Last Admin: 01/04/19 10:21 Dose: 500 mg Lorazepam (Ativan) 0.5 mg PO Q8H [facility]; Protocol Stop: 01/26/19 22:44 Last Admin: 01/04/19 06:47 Dose: Not Given Losartan Potassium (Cozaar) 50 mg PO BID [facility] Stop: 02/26/19 08:59 Last Admin: 01/04/19 10:21 Dose: 50 mg Memantine (Namenda) 10 mg PO BID [facility] Stop: 02/26/19 08:59 Last Admin: 01/04/19 10:19 Dose: 10 mg Nifedipine (Procardia Xl) 90 mg PO DAILY [facility] Stop: 02/26/19 08:59 Last Admin: 01/04/19 10:20 Dose: 90 mg Risperidone (Risperdal) 0.25 mg PO BID [facility]; Protocol Stop: 02/27/19 08:59 Last Admin: 01/04/19 10:17 Dose: 0.25 mg Tamsulosin HCl (Flomax) 0.4 mg PO HS [facility] Stop: 02/26/19 20:59 Last Admin: 01/03/19 21:57 Dose: Not Given Timolol Maleate (Timoptic 0.5% Ophth Soln) 1 drop EACH EYE BID [facility] Stop: 02/26/19 08:59 Last Admin: 01/04/19 10:18 Dose: 1 drop Valproate Sodium (Depakene) 250 mg PO BID [facility]; Protocol Stop: 02/26/19 08:59 Last Admin: 01/04/19 10:18 Dose: 250 mg General: demented, other (sleepy) HEENT: NC/AT, PERRLA Neck: Supple Lungs: CTAB Cardiovascular: RRR, Normal S1, Normal S2, without murmur Abdomen: soft, non-tender Neurological: no change, disorganized Internal Medicine Assmt/Plan - Assessment Assessment: ASSESSMENT: dysphagia, history of atrial fibrillation, history of myocardial infarction, type 2 diabetes, neuropathy, history of seizures, chronic kidney disease, benign prostatic hypertrophy, chronic constipation, glaucoma. - Plan Plan: PLAN: Seizure precautions will be initiated. We will monitor the patient's glucose level closely. ada iss Aspiration precautions, fall precautions. Continue patient's home medications. cont on aeds We will continue to monitor this patient. Nutritional Asmnt/Malnutr-PDOC - Dietary Evaluation Malnutrition Findings (Please click <Entered> for more info): Nutritional Asmnt/Malnutrition Start: 12/31/18 14: 37 Text: Status: Complete Freq: Protocol: Document 12/31/18 14:37 CARLOSORAL (Rec: 12/31/18 14:41 JENNY [id number]) Nutritional Asmnt/Malnutrition Patient General Information Nutritional Screening Moderate Risk Diagnosis Psychosis Pertinent Medical Hx/Surgical Hx CVA with hemiplegia, dysphagia , AFib, [place], DM, Neurpoathy, Seizure, CKD, Chronic constipation, Glaucoma. Subjective Information Pt is a 83-year-old male admitted on 12/27 transferred from [facility] for a continuation of psychiatric management. Presented agitation and aggression in transitional care unit with inappropriate sexual behavior towards female staff. Recommend adding Renal diet, 60gm to Dx as Pt has Hx CKD. BUN/CR: 39/1.98 (12/27 labs). HT: 56 WT: 140 LB (63.64 kg) BMI: 22.60 (Normal) GI: Flat, Soft, Non-tender BM: 12/31 x1 I/O: 1010/Not Noted Skin: WNL, Intact Negro: 17 Diet Order: Mechanical Soft, NCS Estimated Energy Needs: (CKD stage 1-3, CBW) 7069-3135 kcals (28-35 kcals/ kg) 48-51g Pro (0.75-0.8 g/kg) 4971-7522 ml (25-30 ml/kg) Pt is eating 65% of meals x3 days (average) Per Meal/ Nutrition Activity Record. Dietary is currently providing an estimated 2045 kcals and 116 gm Pro, per Pt PO intake this is providing an estimated 1329 kcals and 76gm Pro to meet 75% kcal and 100+% Pro needs. Current Diet Order/ Nutrition Support Mechanical Soft, NCS Pertinent Medications Colace, Cozaar Pertinent Labs 12/27: Hgb/Hct 11.1/33.3, Glucose 158, BUN/CR 39/1.98, Alb 3.1 Nutritional Hx/Data Height 1.68 m Height (Calculated Centimeters) 167.6 Current Weight (lbs) 63.503 kg Weight (Calculated Kilograms) 63.5 Weight (Calculated Grams) 51650.9 [place] Body Weight 142 LB (64.55 kg) % [place] Body Weight 99 Body Mass Index (BMI) 22.6 Weight Status Approriate GI Symptoms Last BM 12/31 x1 Skin Integrity/Comment: Skin: WNL, Intact Negro: 17 Estimated Nutritional Goals BEE in Kcals: Using Current wt Calories/Kcals/Kg 28-35 Kcals Calculated 7864-8907 Protein: Using Current wt Protein g/k.75-0.8 Protein Calculated 48-51 Fluid: ml 2834-4152 ml (25-30 ml/kg) Nutritional Problem 1. Problem Problem Excessive protein intake Etiology r/t Hx CKD Signs/Symptoms: aeb pt PO intake estimated 76gm, over 100% estimated needs. Malnutrition Related to Morbid Obesity Malnutrition related to morbid obesity No Intervention/Recommendation Comments 1 .Continue with Mechanical Soft, NCS diet as ordered. 2. Recommend adding Renal diet , 60gm to Diet Rx as Pt has Hx CKD. BUN/CR: 39/1.98 (12/27 labs). Expected Outcomes/Goals Expected Outcomes/Goals 1. PO intake to continue to meet 75% of nutritional needs. 2. Monitor PO intake, wt, nutrition related labs to trend WNL, and skin integrity. 3. F/U as moderate risk in 7 days, 01/03-01/05
--- NOTE | 2019-01-04 19:14 | Progress Notes ---
DATE: 01/04/2019 An 83-year-old male, very confused, disoriented, paranoid and aggressive at the senior living home and touching females inappropriately, seeking other staff and aggressive behavior. Reconciliation reviewed. Currently on Aricept 10 mg; Lexapro 10 mg b.i.d.; hydralazine, Keppra, Ativan, Cozaar, Namenda 10 b.i.d.; risperidone 0.25 p.o. b.i.d.; Depakote 250. Today on [id number] evaluation, the patient presents very disorganized, needing a lot of redirection to maintain a simple conversation as he continues to need a lot of redirections. He believes that it is 1980, animals are making roaring sound in the hospital. ASSESSMENT AND PLAN: Disorganized, delusional, aggressive. We will continue with the recent addition of medication to target the patient's ongoing symptoms. JOB# [id number]
[2019-01-05] MEDS: NIFEdipine 30 mg ER Tab PO SCH (09:17)
--- NOTE | 2019-01-05 12:25 | Internal Medicine Prog Note ---
Internal Medicine Subjective - Subjective Patient seen and examined:: with staff, chart reviewed Patient is:: asleep, interactive Per staff patient has:: no adverse event, no episodes of fall, tolerating meds Internal Medicine Objective - Physical Exam Vitals and I&O: Vital Signs Temp 97.1 F 01/05/19 06:00 Pulse 78 01/05/19 09:17 Resp 18 01/05/19 08:00 BP 110/60 01/05/19 09:17 Pulse Ox 97 01/05/19 06:00 Intake & Output 01/04/19 01/05/19 01/05/19 18:59 06:59 18:59 Intake Total 1300 360 Output Total 2 Balance 1300 358 Intake: Oral 1300 360 Output: Urine/Stool Mix 2 Other: # Voids 3 1 # Bowel Movements 0 Active Medications: Current Medications Acetaminophen (Tylenol Extra Strength) 1,000 mg PO Q4H PRN PRN Reason: Pain (Moderate) LEVEL 4-7 Stop: 02/25/19 23:25 Acetaminophen (Tylenol Extra Strength) 500 mg PO Q8H PRN PRN Reason: Pain (Mild) LEVEL 1-3 Stop: 02/25/19 23:23 Last Admin: 12/30/18 20:36 Dose: 500 mg Aspirin (Ecotrin) 81 mg PO DAILY [facility] Stop: 02/26/19 08:59 Last Admin: 01/05/19 09:24 Dose: 81 mg Brimonidine Tartrate (Alphagan 0.2% Ophth Soln) 1 drop EACH EYE Q12HR [facility] Stop: 02/26/19 08:59 Last Admin: 01/05/19 09:24 Dose: 1 drop Docusate Sodium (Colace) 250 mg PO DAILY [facility] Stop: 02/26/19 08:59 Last Admin: 01/05/19 09:23 Dose: 250 mg Donepezil HCl (Aricept) 10 mg PO HS [facility] Stop: 02/26/19 20:59 Last Admin: 01/04/19 21:05 Dose: 10 mg Escitalopram Oxalate (Lexapro) 10 mg PO BID [facility]; Protocol Stop: 02/26/19 08:59 Last Admin: 01/05/19 09:22 Dose: 10 mg Finasteride (Proscar) 5 mg PO DAILY [facility]; Protocol Stop: 02/26/19 08:59 Last Admin: 01/05/19 09:22 Dose: 5 mg Hydralazine HCl (Apresoline) 25 mg PO QID [facility] Stop: 02/26/19 08:59 Last Admin: 01/05/19 09:15 Dose: Not Given Levetiracetam (Keppra) 500 mg PO BID [facility] Stop: 02/26/19 08:59 Last Admin: 01/05/19 09:24 Dose: 500 mg Lorazepam (Ativan) 0.5 mg PO Q8H [facility]; Protocol Stop: 01/26/19 22:44 Last Admin: 01/05/19 06:40 Dose: Not Given Losartan Potassium (Cozaar) 50 mg PO BID [facility] Stop: 02/26/19 08:59 Last Admin: 01/05/19 09:15 Dose: Not Given Memantine (Namenda) 10 mg PO BID [facility] Stop: 02/26/19 08:59 Last Admin: 01/05/19 09:23 Dose: 10 mg Nifedipine (Procardia Xl) 90 mg PO DAILY [facility] Stop: 02/26/19 08:59 Last Admin: 01/05/19 09:17 Dose: Not Given Risperidone (Risperdal) 0.25 mg PO BID [facility]; Protocol Stop: 02/27/19 08:59 Last Admin: 01/05/19 09:23 Dose: 0.25 mg Tamsulosin HCl (Flomax) 0.4 mg PO HS [facility] Stop: 02/26/19 20:59 Last Admin: 01/04/19 21:05 Dose: 0.4 mg Timolol Maleate (Timoptic 0.5% Ophth Soln) 1 drop EACH EYE BID [facility] Stop: 02/26/19 08:59 Last Admin: 01/05/19 09:24 Dose: 1 drop Valproate Sodium (Depakene) 250 mg PO BID [facility]; Protocol Stop: 02/26/19 08:59 Last Admin: 01/05/19 09:22 Dose: 250 mg General: demented, other (sleepy) HEENT: NC/AT, PERRLA Neck: Supple Lungs: CTAB Cardiovascular: RRR, Normal S1, Normal S2, without murmur Abdomen: soft, non-tender Neurological: no change, disorganized Internal Medicine Assmt/Plan - Assessment Assessment: ASSESSMENT: dysphagia, history of atrial fibrillation, history of myocardial infarction, type 2 diabetes, neuropathy, history of seizures, chronic kidney disease, benign prostatic hypertrophy, chronic constipation, glaucoma. - Plan Plan: PLAN: Seizure precautions will be initiated. We will monitor the patient's glucose level closely. ada iss Aspiration precautions, fall precautions. Continue patient's home medications. cont on aeds We will continue to monitor this patient. Nutritional Asmnt/Malnutr-PDOC - Dietary Evaluation Malnutrition Findings (Please click <Entered> for more info): Nutritional Asmnt/Malnutrition Start: 12/31/18 14: 37 Text: Status: Complete Freq: Protocol: Document 12/31/18 14:37 PABLITOGABRIELEORAL (Rec: 12/31/18 14:41 PABLITOGABRIELEORAL [email or web address]) Nutritional Asmnt/Malnutrition Patient General Information Nutritional Screening Moderate Risk Diagnosis Psychosis Pertinent Medical Hx/Surgical Hx CVA with hemiplegia, dysphagia , AFib, [place], DM, Neurpoathy, Seizure, CKD, Chronic constipation, Glaucoma. Subjective Information Pt is a 83-year-old male admitted on 12/27 transferred from [facility] for a continuation of psychiatric management. Presented agitation and aggression in transitional care unit with inappropriate sexual behavior towards female staff. Recommend adding Renal diet, 60gm to Dx as Pt has Hx CKD. BUN/CR: 39/1.98 (12/27 labs). HT: 56 WT: 140 LB (63.64 kg) BMI: 22.60 (Normal) GI: Flat, Soft, Non-tender BM: 12/31 x1 I/O: 1010/Not Noted Skin: WNL, Intact Negro: 17 Diet Order: Mechanical Soft, NCS Estimated Energy Needs: (CKD stage 1-3, CBW) 7386-6683 kcals (28-35 kcals/ kg) 48-51g Pro (0.75-0.8 g/kg) 1355-8790 ml (25-30 ml/kg) Pt is eating 65% of meals x3 days (average) Per Meal/ Nutrition Activity Record. Dietary is currently providing an estimated 2045 kcals and 116 gm Pro, per Pt PO intake this is providing an estimated 1329 kcals and 76gm Pro to meet 75% kcal and 100+% Pro needs. Current Diet Order/ Nutrition Support Mechanical Soft, NCS Pertinent Medications Colace, Cozaar Pertinent Labs 12/27: Hgb/Hct 11.1/33.3, Glucose 158, BUN/CR 39/1.98, Alb 3.1 Nutritional Hx/Data Height 1.68 m Height (Calculated Centimeters) 167.6 Current Weight (lbs) 63.503 kg Weight (Calculated Kilograms) 63.5 Weight (Calculated Grams) 69652.9 [place] Body Weight 142 LB (64.55 kg) % [place] Body Weight 99 Body Mass Index (BMI) 22.6 Weight Status Approriate GI Symptoms Last BM 12/31 x1 Skin Integrity/Comment: Skin: WNL, Intact Negro: 17 Estimated Nutritional Goals BEE in Kcals: Using Current wt Calories/Kcals/Kg 28-35 Kcals Calculated 4316-0280 Protein: Using Current wt Protein g/k.75-0.8 Protein Calculated 48-51 Fluid: ml 1406-4817 ml (25-30 ml/kg) Nutritional Problem 1. Problem Problem Excessive protein intake Etiology r/t Hx CKD Signs/Symptoms: aeb pt PO intake estimated 76gm, over 100% estimated needs. Malnutrition Related to Morbid Obesity Malnutrition related to morbid obesity No Intervention/Recommendation Comments 1 .Continue with Mechanical Soft, NCS diet as ordered. 2. Recommend adding Renal diet , 60gm to Diet Rx as Pt has Hx CKD. BUN/CR: 39/1.98 (12/27 labs). Expected Outcomes/Goals Expected Outcomes/Goals 1. PO intake to continue to meet 75% of nutritional needs. 2. Monitor PO intake, wt, nutrition related labs to trend WNL, and skin integrity. 3. F/U as moderate risk in 7 days, 01/03-01/05
--- NOTE | 2019-01-06 00:03 | Progress Notes ---
DATE: 01/05/2019 Today on [id number] evaluation, limited historian, at times refuses to be interviewed. He is scared, suspicious around the room placing his sheets over his head. MENTAL STATUS EXAMINATION: Suspicious, placing his sheets over his head. ASSESSMENT AND PLAN: Dementia with behavior disturbance and psychosis. We will continue with the current medication regimen; Aricept 10 mg, Lexapro 10 mg b.i.d., Namenda, risperidone 0.25 p.o. b.i.d. No side effects. No EPS. JOB# [id number]
[2019-01-06] MEDS: NIFEdipine 30 mg ER Tab PO SCH (09:38)
--- NOTE | 2019-01-06 12:33 | Internal Medicine Prog Note ---
Internal Medicine Subjective - Subjective Patient seen and examined:: with staff, chart reviewed Patient is:: asleep, interactive Per staff patient has:: no adverse event, no episodes of fall, tolerating meds Internal Medicine Objective - Physical Exam Vitals and I&O: Vital Signs Temp 97.4 F 01/06/19 05:59 Pulse 80 01/06/19 09:39 Resp 20 01/06/19 08:00 BP 116/88 01/06/19 09:39 Pulse Ox 96 01/06/19 05:59 Intake & Output 01/05/19 01/06/19 01/06/19 18:59 06:59 18:59 Intake Total 850 2521 Output Total 1 Balance 850 2520 Intake: Oral 850 2521 Output: Urine/Stool Mix 1 Other: # Voids 3 2 # Bowel Movements 2 1 Stool Characteristics Soft Soft Active Medications: Current Medications Acetaminophen (Tylenol Extra Strength) 1,000 mg PO Q4H PRN PRN Reason: Pain (Moderate) LEVEL 4-7 Stop: 02/25/19 23:25 Acetaminophen (Tylenol Extra Strength) 500 mg PO Q8H PRN PRN Reason: Pain (Mild) LEVEL 1-3 Stop: 02/25/19 23:23 Last Admin: 12/30/18 20:36 Dose: 500 mg Aspirin (Ecotrin) 81 mg PO DAILY [facility] Stop: 02/26/19 08:59 Last Admin: 01/06/19 09:39 Dose: 81 mg Brimonidine Tartrate (Alphagan 0.2% Ophth Soln) 1 drop EACH EYE Q12HR [facility] Stop: 02/26/19 08:59 Last Admin: 01/06/19 09:41 Dose: 1 drop Docusate Sodium (Colace) 250 mg PO DAILY [facility] Stop: 02/26/19 08:59 Last Admin: 01/06/19 09:41 Dose: Not Given Donepezil HCl (Aricept) 10 mg PO HS [facility] Stop: 02/26/19 20:59 Last Admin: 01/05/19 20:29 Dose: 10 mg Escitalopram Oxalate (Lexapro) 10 mg PO BID [facility]; Protocol Stop: 02/26/19 08:59 Last Admin: 01/06/19 09:38 Dose: 10 mg Finasteride (Proscar) 5 mg PO DAILY [facility]; Protocol Stop: 02/26/19 08:59 Last Admin: 01/06/19 09:41 Dose: 5 mg Hydralazine HCl (Apresoline) 25 mg PO QID [facility] Stop: 02/26/19 08:59 Last Admin: 01/06/19 09:39 Dose: Not Given Levetiracetam (Keppra) 500 mg PO BID [facility] Stop: 02/26/19 08:59 Last Admin: 01/06/19 09:40 Dose: 500 mg Lorazepam (Ativan) 0.5 mg PO Q8H [facility]; Protocol Stop: 01/26/19 22:44 Last Admin: 01/06/19 06:36 Dose: 0.5 mg Losartan Potassium (Cozaar) 50 mg PO BID [facility] Stop: 02/26/19 08:59 Last Admin: 01/06/19 09:39 Dose: 50 mg Memantine (Namenda) 10 mg PO BID [facility] Stop: 02/26/19 08:59 Last Admin: 01/06/19 09:38 Dose: 10 mg Nifedipine (Procardia Xl) 90 mg PO DAILY [facility] Stop: 02/26/19 08:59 Last Admin: 01/06/19 09:38 Dose: Not Given Risperidone (Risperdal) 0.25 mg PO BID [facility]; Protocol Stop: 02/27/19 08:59 Last Admin: 01/06/19 09:40 Dose: 0.25 mg Tamsulosin HCl (Flomax) 0.4 mg PO HS [facility] Stop: 02/26/19 20:59 Last Admin: 01/05/19 20:30 Dose: 0.4 mg Timolol Maleate (Timoptic [facility]) 1 drop EACH EYE BID [facility] Stop: 02/26/19 08:59 Last Admin: 01/06/19 09:37 Dose: 1 drop Valproate Sodium (Depakene) 250 mg PO BID [facility]; Protocol Stop: 02/26/19 08:59 Last Admin: 01/06/19 09:42 Dose: 250 mg General: demented, other (sleepy) HEENT: NC/AT, PERRLA Neck: Supple Lungs: CTAB Cardiovascular: RRR, Normal S1, Normal S2, without murmur Abdomen: soft, non-tender Neurological: no change, disorganized Internal Medicine Assmt/Plan - Assessment Assessment: ASSESSMENT: dysphagia, history of atrial fibrillation, history of myocardial infarction, type 2 diabetes, neuropathy, history of seizures, chronic kidney disease, benign prostatic hypertrophy, chronic constipation, glaucoma. - Plan Plan: PLAN: Seizure precautions will be initiated. We will monitor the patient's glucose level closely. ada iss Aspiration precautions, fall precautions. Continue patient's home medications. cont on aeds We will continue to monitor this patient. Nutritional Asmnt/Malnutr-PDOC - Dietary Evaluation Malnutrition Findings (Please click <Entered> for more info): Nutritional Asmnt/Malnutrition Start: 12/31/18 14: 37 Text: Status: Complete Freq: Protocol: Document 12/31/18 14:37 JENNY (Rec: 12/31/18 14:41 JENNY [email or web address]) Nutritional Asmnt/Malnutrition Patient General Information Nutritional Screening Moderate Risk Diagnosis Psychosis Pertinent Medical Hx/Surgical Hx CVA with hemiplegia, dysphagia , AFib, [place], DM, Neurpoathy, Seizure, CKD, Chronic constipation, Glaucoma. Subjective Information Pt is a 83-year-old male admitted on 12/[address] [facility] for a continuation of psychiatric management. Presented agitation and aggression in transitional care unit with inappropriate sexual behavior towards female staff. Recommend adding Renal diet, 60gm to Dx as Pt has Hx CKD. BUN/CR: 39/1.98 (12/27 labs). HT: 56 WT: 140 LB (63.64 kg) BMI: 22.60 (Normal) GI: Flat, Soft, Non-tender BM: 12/31 x1 I/O: 1010/Not Noted Skin: WNL, Intact Negro: 17 Diet Order: Mechanical Soft, NCS Estimated Energy Needs: (CKD stage 1-3, CBW) 8172-6862 kcals (28-35 kcals/ kg) 48-51g Pro (0.75-0.8 g/kg) 3625-0132 ml (25-30 ml/kg) Pt is eating 65% of meals x3 days (average) Per Meal/ Nutrition Activity Record. Dietary is currently providing an estimated 2045 kcals and 116 gm Pro, per Pt PO intake this is providing an estimated 1329 kcals and 76gm Pro to meet 75% kcal and 100+% Pro needs. Current Diet Order/ Nutrition Support Mechanical Soft, NCS Pertinent Medications Colace, Cozaar Pertinent Labs 12/27: Hgb/Hct 11.1/33.3, Glucose 158, BUN/CR 39/1.98, Alb 3.1 Nutritional Hx/Data Height 1.68 m Height (Calculated Centimeters) 167.6 Current Weight (lbs) 63.503 kg Weight (Calculated Kilograms) 63.5 Weight (Calculated Grams) 20310.9 [place] Body Weight 142 LB (64.55 kg) % [place] Body Weight 99 Body Mass Index (BMI) 22.6 Weight Status Approriate GI Symptoms Last BM 12/31 x1 Skin Integrity/Comment: Skin: WNL, Intact Negro: 17 Estimated Nutritional Goals BEE in Kcals: Using Current wt Calories/Kcals/Kg 28-35 Kcals Calculated 0358-9177 Protein: Using Current wt Protein g/k.75-0.8 Protein Calculated 48-51 Fluid: ml 2405-2033 ml (25-30 ml/kg) Nutritional Problem 1. Problem Problem Excessive protein intake Etiology r/t Hx CKD Signs/Symptoms: aeb pt PO intake estimated 76gm, over 100% estimated needs. Malnutrition Related to Morbid Obesity Malnutrition related to morbid obesity No Intervention/Recommendation Comments 1 .Continue with Mechanical Soft, NCS diet as ordered. 2. Recommend adding Renal diet , 60gm to Diet Rx as Pt has Hx CKD. BUN/CR: 39/1.98 (12/27 labs). Expected Outcomes/Goals Expected Outcomes/Goals 1. PO intake to continue to meet 75% of nutritional needs. 2. Monitor PO intake, wt, nutrition related labs to trend WNL, and skin integrity. 3. F/U as moderate risk in 7 days, 01/03-01/05
[2019-01-06] MEDS: Acetaminophen 500 MG TAB PO PRN (21:46)
--- NOTE | 2019-01-06 23:51 | Progress Notes ---
DATE: 01/06/2019 SUBJECTIVE: The patient in the hospital, very confused, disoriented just stating over and over again "over there" "over there". The patient is being seen by Dr. Pierre over the weekend, scared, suspicious, not wanted to be bothered. Today, he is pretty confused, ongoing disorientation, mostly keeps to self, some periods of agitation, per staff. ASSESSMENT: The patient remains unruly, confused, ongoing concerns for safety of others. PLAN: We will continue to monitor. JOB# [id number]
[2019-01-07] MEDS: NIFEdipine 30 mg ER Tab PO SCH (08:43)
--- NOTE | 2019-01-07 12:24 | Internal Medicine Prog Note ---
Internal Medicine Subjective - Subjective Patient seen and examined:: with staff, chart reviewed Patient is:: asleep, interactive Per staff patient has:: no adverse event, no episodes of fall, tolerating meds Internal Medicine Objective - Physical Exam Vitals and I&O: Vital Signs Temp 97.6 F 01/07/19 05:43 Pulse 74 01/07/19 08:47 Resp 20 01/07/19 05:43 BP 157/77 01/07/19 08:47 Pulse Ox 95 01/07/19 05:43 Intake & Output 01/06/19 01/07/19 01/07/19 18:59 06:59 18:59 Intake Total 700 180 Output Total 1 Balance 700 179 Intake: Oral 700 180 Output: Urine/Stool Mix 1 Other: # Voids 3 2 # Bowel Movements 0 1 Stool Characteristics Soft Soft Active Medications: Current Medications Acetaminophen (Tylenol Extra Strength) 1,000 mg PO Q4H PRN PRN Reason: Pain (Moderate) LEVEL 4-7 Stop: 02/25/19 23:25 Acetaminophen (Tylenol Extra Strength) 500 mg PO Q8H PRN PRN Reason: Pain (Mild) LEVEL 1-3 Stop: 02/25/19 23:23 Last Admin: 01/06/19 21:46 Dose: 500 mg Aspirin (Ecotrin) 81 mg PO DAILY [facility] Stop: 02/26/19 08:59 Last Admin: 01/07/19 08:45 Dose: 81 mg Brimonidine Tartrate (Alphagan 0.2% Ophth Soln) 1 drop EACH EYE Q12HR [facility] Stop: 02/26/19 08:59 Last Admin: 01/07/19 08:48 Dose: 1 drop Docusate Sodium (Colace) 250 mg PO DAILY [facility] Stop: 02/26/19 08:59 Last Admin: 01/07/19 08:45 Dose: 250 mg Donepezil HCl (Aricept) 10 mg PO HS [facility] Stop: 02/26/19 20:59 Last Admin: 01/06/19 21:44 Dose: 10 mg Escitalopram Oxalate (Lexapro) 10 mg PO BID [facility]; Protocol Stop: 02/26/19 08:59 Last Admin: 01/07/19 08:44 Dose: 10 mg Finasteride (Proscar) 5 mg PO DAILY [facility]; Protocol Stop: 02/26/19 08:59 Last Admin: 01/07/19 08:45 Dose: 5 mg Hydralazine HCl (Apresoline) 25 mg PO QID [facility] Stop: 02/26/19 08:59 Last Admin: 01/07/19 08:46 Dose: 25 mg Levetiracetam (Keppra) 500 mg PO BID [facility] Stop: 02/26/19 08:59 Last Admin: 01/07/19 08:45 Dose: 500 mg Lorazepam (Ativan) 0.5 mg PO Q8H [facility]; Protocol Stop: 01/26/19 22:44 Last Admin: 01/07/19 06:39 Dose: 0.5 mg Losartan Potassium (Cozaar) 50 mg PO BID [facility] Stop: 02/26/19 08:59 Last Admin: 01/07/19 08:47 Dose: 50 mg Memantine (Namenda) 10 mg PO BID [facility] Stop: 02/26/19 08:59 Last Admin: 01/07/19 08:45 Dose: 10 mg Nifedipine (Procardia Xl) 90 mg PO DAILY [facility] Stop: 02/26/19 08:59 Last Admin: 01/07/19 08:43 Dose: 90 mg Risperidone (Risperdal) 0.25 mg PO BID [facility]; Protocol Stop: 02/27/19 08:59 Last Admin: 01/07/19 08:45 Dose: 0.25 mg Tamsulosin HCl (Flomax) 0.4 mg PO HS [facility] Stop: 02/26/19 20:59 Last Admin: 01/06/19 21:45 Dose: 0.4 mg Timolol Maleate (Timoptic 0.5% [facility]) 1 drop EACH EYE BID [facility] Stop: 02/26/19 08:59 Last Admin: 01/07/19 08:47 Dose: 1 drop Valproate Sodium (Depakene) 250 mg PO BID [facility]; Protocol Stop: 02/26/19 08:59 Last Admin: 01/07/19 08:47 Dose: 250 mg General: demented, other (sleepy) HEENT: NC/AT, PERRLA Neck: Supple Lungs: CTAB Cardiovascular: RRR, Normal S1, Normal S2, without murmur Abdomen: soft, non-tender Neurological: no change, disorganized Internal Medicine Assmt/Plan - Assessment Assessment: ASSESSMENT: dysphagia, history of atrial fibrillation, history of myocardial infarction, type 2 diabetes, neuropathy, history of seizures, chronic kidney disease, benign prostatic hypertrophy, chronic constipation, glaucoma. - Plan Plan: PLAN: Seizure precautions will be initiated. We will monitor the patient's glucose level closely. ada iss Aspiration precautions, fall precautions. Continue patient's home medications. cont on aeds We will continue to monitor this patient. Nutritional Asmnt/Malnutr-PDOC - Dietary Evaluation Malnutrition Findings (Please click <Entered> for more info): Nutritional Asmnt/Malnutrition Start: 12/31/18 14: 37 Text: Status: Complete Freq: Protocol: Document 12/31/18 14:37 JENNY (Rec: 12/31/18 14:41 JENNY [id number]) Nutritional Asmnt/Malnutrition Patient General Information Nutritional Screening Moderate Risk Diagnosis Psychosis Pertinent Medical Hx/Surgical Hx CVA with hemiplegia, dysphagia , AFib, [place], DM, Neurpoathy, Seizure, CKD, Chronic constipation, Glaucoma. Subjective Information Pt is a 83-year-old male admitted on 12/27 transferred from [facility] for a continuation of psychiatric management. Presented agitation and aggression in transitional care unit with inappropriate sexual behavior towards female staff. Recommend adding Renal diet, 60gm to Dx as Pt has Hx CKD. BUN/CR: 39/1.98 (12/27 labs). HT: 56 WT: 140 LB (63.64 kg) BMI: 22.60 (Normal) GI: Flat, Soft, Non-tender BM: 12/31 x1 I/O: 1010/Not Noted Skin: WNL, Intact Negro: 17 Diet Order: Mechanical Soft, NCS Estimated Energy Needs: (CKD stage 1-3, CBW) 6989-9141 kcals (28-35 kcals/ kg) 48-51g Pro (0.75-0.8 g/kg) 3758-8903 ml (25-30 ml/kg) Pt is eating 65% of meals x3 days (average) Per Meal/ Nutrition Activity Record. Dietary is currently providing an estimated 2045 kcals and 116 gm Pro, per Pt PO intake this is providing an estimated 1329 kcals and 76gm Pro to meet 75% kcal and 100+% Pro needs. Current Diet Order/ Nutrition Support Mechanical Soft, NCS Pertinent Medications Colace, Cozaar Pertinent Labs 12/27: Hgb/Hct 11.1/33.3, Glucose 158, BUN/CR 39/1.98, Alb 3.1 Nutritional Hx/Data Height 1.68 m Height (Calculated Centimeters) 167.6 Current Weight (lbs) 63.503 kg Weight (Calculated Kilograms) 63.5 Weight (Calculated Grams) 81072.9 [place] Body Weight 142 LB (64.55 kg) % [place] Body Weight 99 Body Mass Index (BMI) 22.6 Weight Status Approriate GI Symptoms Last BM 12/31 x1 Skin Integrity/Comment: Skin: WNL, Intact Negro: 17 Estimated Nutritional Goals BEE in Kcals: Using Current wt Calories/Kcals/Kg 28-35 Kcals Calculated 1987-8252 Protein: Using Current wt Protein g/k.75-0.8 Protein Calculated 48-51 Fluid: ml 1350-8712 ml (25-30 ml/kg) Nutritional Problem 1. Problem Problem Excessive protein intake Etiology r/t Hx CKD Signs/Symptoms: aeb pt PO intake estimated 76gm, over 100% estimated needs. Malnutrition Related to Morbid Obesity Malnutrition related to morbid obesity No Intervention/Recommendation Comments 1 .Continue with Mechanical Soft, NCS diet as ordered. 2. Recommend adding Renal diet , 60gm to Diet Rx as Pt has Hx CKD. BUN/CR: 39/1.98 (12/27 labs). Expected Outcomes/Goals Expected Outcomes/Goals 1. PO intake to continue to meet 75% of nutritional needs. 2. Monitor PO intake, wt, nutrition related labs to trend WNL, and skin integrity. 3. F/U as moderate risk in 7 days, 01/03-01/05
--- NOTE | 2019-01-08 00:36 | Discharge Summary ---
DATE OF DISCHARGE: 01/07/2019 HISTORY OF PRESENT ILLNESS: This is an 83-year-old male coming in the hospital, aggressive, agitated behaviors, striking out behaviors, very confused, disoriented. PAST PSYCHIATRIC HISTORY: Admissions in the past. MENTAL STATUS EXAMINATION: Please see full psych eval for details. PROVISIONAL DIAGNOSIS: Dementia, dementia with behaviors; mood, unspecified; anxiety, unspecified. HOSPITAL COURSE: The patient was admitted. Medications were adjusted, titrated over the course of hospitalization. He was calmer, settling down, not as aggressive, more redirectable, remains very confused, disoriented. No overt side effects. No oversedation. Fair sleep, mostly keeps to self. CONDITION UPON DISCHARGE: Improved, calmer, more cooperative, no longer striking out. No longer violent. DISCHARGE DIAGNOSES: Mood unspecified; anxiety unspecified, psychosis, unspecified; dementia, dementia with behaviors. MEDICAL: Please see full H and P. The patient without any suicidal or homicidal gestures. No overt psychotic symptoms upon discharge. PROGNOSIS: The patient follows up with outpatient mental health services and remains compliant with treatment. Prognosis will improve, otherwise guarded. JOB# [id number]
== END 2019-01-07 16:20 | DRG 885 ==
LOC: GERO 20:42
PROVIDERS: ADMIT Psychiatry & Neurology Psychiatry; ATTEND Psychiatry & Neurology Psychiatry
DX: F39 Unspecified mood [affective] disorder (principal); N18.9 Chronic kidney disease, unspecified; F03.91 Unspecified dementia, unspecified severity, with behavioral disturbance; I69.354 Hemiplegia and hemiparesis following cerebral infarction affecting left non-dominant side; E11.40 Type 2 diabetes mellitus with diabetic neuropathy, unspecified; F41.9 Anxiety disorder, unspecified; I48.91 Unspecified atrial fibrillation; I25.2 Old myocardial infarction; E11.22 Type 2 diabetes mellitus with diabetic chronic kidney disease; R56.9 Unspecified convulsions; N40.0 Benign prostatic hyperplasia without lower urinary tract symptoms; K59.09 Other constipation; H40.9 Unspecified glaucoma; R13.10 Dysphagia, unspecified
CPT/HCPCS: 83036-90; Z7610